=== PATIENT | male | born 1970 | race Caucasian/White ===

== ENCOUNTER 2019-03-10 18:46 | Emergency (ER) | payer OTHER ==
[2019-03-10 18:52] VITALS: BP 119/94; PULSE 86; TEMP 98; BMI 25.0
[2019-03-10] MEDS ORDERED: KETOROLAC TROMETHAMINE 60 MG/2 ML VIAL IM ONE (19:01)
[2019-03-10] MEDS ORDERED: traMADol HCL 50 MG TABLET PO ONE (19:01)
[2019-03-10] MEDS ORDERED: traMADol HCL 50 MG TABLET ONE (19:01)
[2019-03-10] MEDS ORDERED: KETOROLAC TROMETHAMINE 60 MG/2 ML VIAL ONE (19:01)
--- NOTE | 2019-03-10 19:07 | PDOC ---
History of Present Illness - General Chief Complaint: Pain Stated Complaint: FELL IN BATHROOM, BACK PAIN Time Seen by Provider: 03/10/19 18:55 History Source: Patient - History of Present Illness Occurred: reports: just prior to arrival Pain Location: reports: back Method of Injury: Yes: fall Past History - Past Medical History Allergies/Adverse Reactions: Allergies Allergy/AdvReac Type Severity Reaction Status Date / Time No Known Allergies Allergy Verified 03/10/19 18:52 Home Medications: Ambulatory Orders Cyclobenzaprine HCl [Flexeril 10 mg] 10 mg PO ASDIR #9 tablet 03/10/19 Ibuprofen [Motrin -] 800 mg PO Q6H #30 tablet 03/10/19 COPD: No - Suicide/Smoking/Psychosocial Hx Smoking History: Never smoked Review of Systems - Review of Systems Musculoskeletal: Yes: Back Pain, Muscle Pain. No: Neck Pain Neurological: No: Headache, Numbness, Tingling, Weakness, Dizziness *Physical Exam - Vital Signs Last Vital Signs Temp Pulse Resp BP Pulse Ox 98 F 86 18 119/94 99 03/10/19 18:49 03/10/19 18:49 03/10/19 18:49 03/10/19 18:49 03/10/19 18:49 - Physical Exam General Appearance: Yes: Appropriately Dressed, Severe Distress HEENT: positive: Normal Voice Neck: positive: Supple. negative: Tender, Decreased range of motion Respiratory/Chest: positive: Lungs Clear, Normal Breath Sounds, Other (no crepitus). negative: Chest Tender, Respiratory Distress Cardiovascular: positive: Regular Rate, S1, S2 Gastrointestinal/Abdominal: positive: Soft. negative: Tender Musculoskeletal: positive: Vertebral Tenderness (sig ttp to R mid back, no spinal ttp) Extremity: positive: Normal Inspection Integumentary: positive: Dry, Warm Neurologic: positive: Fully Oriented, Alert, Normal Mood/Affect, Motor Strength 5/5 ED Treatment Course - RADIOLOGY Radiology Studies Ordered: Category Date Time Status RIBS BILATERAL [RAD] Stat Radiology 03/10/19 19:00 Ordered Medical Decision Making - Medical Decision Making 03/10/19 19:03 48 yo M, no sig pmhx, here w/ severe R mid back pain s/p fall. Pt states he slipped and fell in the bathroom today, landing on his back. No head injury, LOC, headache, dizziness, nausea, vomiting. Denies any neck pain. Able to ambulate but painful see exam R/o rib fx, possibly MSK -pain control -XR 03/10/19 19:35 Rib series negative. Patient reports feeling significantly better with pain meds. Will dc with pain control. PMD follow-up as needed *DC/Admit/Observation/Transfer Diagnosis at time of Disposition: Back injury Qualifiers: Encounter type: initial encounter Qualified Code(s): S39.92XA - Unspecified injury of lower back, initial encounter - Discharge Dispostion Disposition: HOME Condition at time of disposition: Good - Prescriptions Prescriptions: Cyclobenzaprine HCl [Flexeril 10 mg] 10 mg PO ASDIR #9 tablet Ibuprofen [Motrin -] 800 mg PO Q6H #30 tablet - Referrals - Patient Instructions Printed Discharge Instructions: DI for Back Strain or Sprain Additional Instructions: Es probable que haya sufrido tammy lesin muscular en la espalda. Hassan radiografa era normal. [place] los medicamentos segn las indicaciones y reynaldo un seguimiento con hassan mdico segn sea necesario. Print Language: [place] - Post Discharge Activity
== END 2019-03-10 19:42 | disposition home or self-care (01) ==
LOC: JERFT 18:46
PROC: 3E0233Z Introduction of Anti-inflammatory into Muscle, Percutaneous Approach (ICD-10-PCS; principal; 2019-03-10)
DX: S39.92XA Unspecified injury of lower back, initial encounter (principal); W01.0XXA Fall on same level from slipping, tripping and stumbling without subsequent striking against object, initial encounter; Y93.89 Activity, other specified; Y92.002 Bathroom of unspecified non-institutional (private) residence as the place of occurrence of the external cause
CPT/HCPCS: 71111-TC-FY; 96372; 99282-25